=== PATIENT | female | born 1970 | race Caucasian/White ===

== ENCOUNTER 2017-04-03 23:16 | Emergency (ER) | payer OTHER ==
--- NOTE | ~2017-04-03 | EKG ---
PATIENT: CARMELA SALCEDO UNIT #: [id number] Ventricular Rate: 79 BPM Atrial Rate: 79 BPM P-R Interval: 130 ms QRS Duration: 72 ms Q-T Interval: 344 ms QTC Calculation(Bezet): 394 ms P [place]: 64 degrees Calculated R [place]: 69 degrees Calculated T [place]: 50 degrees Diagnosis Line: Normal sinus rhythm Diagnosis Line: Normal ECG Diagnosis Line: No previous ECGs available Diagnosis Line: Confirmed by KAT LAWRENCE MD ([id number]) on Diagnosis Line: 04/04/2017 3:20:33 PM INTERPRETING MD: MELINDA HAINES
[~2017-04-03 23:16] MED LIST: ADVAIR 1001 DISK W/D; ALBUTEROL17 GM; BENTYL20 MG; BENTYL20 MG PO; LORTAB 10/500 T1 TAB PO; METRONIDAZOLE PO; PHENERGAN25 MG PO; SINGULAIR
== END 2017-04-03 23:59 | disposition left against medical advice (07) ==
LOC: CED 23:16
DX: Z53.21 Procedure and treatment not carried out due to patient leaving prior to being seen by health care provider (principal)
CPT/HCPCS: 93005

== ENCOUNTER 2017-04-04 16:04 | Emergency (ER) | payer OTHER ==
--- NOTE | ~2017-04-04 | EKG ---
PATIENT: CARMELA SALCEDO UNIT #: [id number] Ventricular Rate: 62 BPM Atrial Rate: 62 BPM P-R Interval: 124 ms QRS Duration: 74 ms Q-T Interval: 408 ms QTC Calculation(Bezet): 414 ms P [place]: 50 degrees Calculated R [place]: 73 degrees Calculated T [place]: 60 degrees Diagnosis Line: Normal sinus rhythm Diagnosis Line: Normal ECG Diagnosis Line: When compared with ECG of 03-APR-2017 23:22, Diagnosis Line: No significant change was found Diagnosis Line: Confirmed by ABEBE SAXENA MD ([id number]) on Diagnosis Line: 04/08/2017 9:43:02 AM INTERPRETING [place]
--- NOTE | ~2017-04-04 | CR63 ---
[facility] A Service of [facility] RADIOLOGY TEXT RESULTS PATIENT: CARMELA SALCEDO LOCATION: [facility] : 70 UNIT #: [id number] AGE: [address]: Lorraine Chaney MD SEX: F ORDER DR: [id number] [facility] [address] [place], [place] [address] [id number] E MR#: [id number] Acc #: [id number] NAME: CARMELA SALCEDO : 1970 SEX: F STUDY DATE/TIME: 04/04/2017 19:23 UNIT: [facility] ROOM: STUDY DESCRIPTION: CR Chest 2 View Attending Physician: Lorraine Chaney M.D. Ordering Physician: Lorraine Chaney M.D. Primary Care Physician: Primary Care Physician No MEDICAL IMAGING REPORT This report is preliminary unless electronic signature is present EXAM Chest x-ray 2 views HISTORY Cough, congestion and chest pain today. Mid chest pain to left side with headache and shortness of breath. No history of cancer. The patient is a smoker. COMMENT 2 views of the chest reviewed. 3 films submitted. Comparison study is from 04/04/2017. There are mild thoracic degenerative changes. There is no pleural effusion. The heart size is normal. There is no acute-appearing parenchymal infiltrate or acute congestive failure. No pneumothorax. IMPRESSION No active disease. Dictated by... Elba Rojo M.D. THIS IS AN ELECTRONICALLY VERIFIED REPORT Elba Rojo M.D. at 04/05/2017 2:29 PM SUSIE/judy TD: 04/05/2017 03:22 JOB #: [id number] MEDICAL IMAGING REPORT Page 1 of 1 COPY
--- NOTE | ~2017-04-04 | CR72 ---
[facility] A Service of [facility] RADIOLOGY TEXT RESULTS PATIENT: CARMELA SALCEDO LOCATION: [facility] : 70 UNIT #: [id number] AGE: [address]: Lorraine Chaney MD SEX: F ORDER DR: [id number] [facility] [address] [place], [place] [address] [id number] E MR#: [id number] Acc #: [id number] NAME: CARMELA SALCEDO : 1970 SEX: F STUDY DATE/TIME: 04/04/2017 17:28 UNIT: [facility] ROOM: STUDY DESCRIPTION: CR Chest Single View Portable Attending Physician: Lorraine Chaney M.D. Ordering Physician: Lorraine Chaney M.D. Primary Care Physician: No Primary Care Physician MEDICAL IMAGING REPORT This report is preliminary unless electronic signature is present EXAM Chest, single view. INDICATIONS Palpitation and shortness of breath starting today. FINDINGS Comparison made to a prior exam from February 13, 2010. FINDINGS There is some questionable infiltrate seen within the left infrahilar region. Potentially this may just reflect some summation of shadows. PA and lateral chest radiograph will allow for clarification. No pneumothorax or pleural effusion is seen. Patient's right lung appears clear. Dictated by... Ashlyn Shelton M.D. THIS IS AN ELECTRONICALLY VERIFIED REPORT Ashlyn Shelton M.D. at 04/05/2017 10:57 AM AFF/ea TD: 04/05/2017 00:42 JOB #: [id number] MEDICAL IMAGING REPORT Page 1 of 1 COPY
--- NOTE | ~2017-04-04 | CT71 ---
[facility] A Service [facility] RADIOLOGY TEXT RESULTS PATIENT: CARMELA SALCEDO LOCATION: [facility] : 70 UNIT #: [id number] AGE: [address]: Lorraine Chaney MD SEX: F ORDER DR: [id number] [id number] [place], [place] [address] [id number] E MR#: [id number] Acc #: [id number] NAME: CARMELA SALCEDO : 1970 SEX: F STUDY DATE/TIME: 04/04/2017 20:16 UNIT: [facility] ROOM: STUDY DESCRIPTION: CT Head Wo Contrast Attending Physician: Lorraine Chaney M.D. Ordering Physician: Lorraine Chaney M.D. Primary Care Physician: Primary Care Physician No MEDICAL IMAGING REPORT This report is preliminary unless electronic signature is present EXAM CT of the head without contrast INDICATIONS Headache intermittently since April 01, 2017. TECHNIQUE Axial CT images were obtained from the vertex of the skull through skull base. No intravenous contrast material was administered. This CT exam was performed with one or more of the following radiation dose reduction techniques: Automatic exposure control, adjustment of mA and/or kV according to patient size, and iterative reconstruction. FINDINGS Axial noncontrast images were obtained from the skull base to the vertex. Ventricular size and configuration are normal. There is no evidence of acute infarct or hemorrhage. There are no extraaxial fluid collections. No mass lesion or mass effect is seen. There are no skull fractures. IMPRESSION Normal noncontrast head CT. Negative. Dictated by... Ashlyn Shelton M.D. THIS IS AN ELECTRONICALLY VERIFIED REPORT Ashlyn Shelton M.D. at 04/05/2017 10:59 AM AFF/psc TD: 04/05/2017 04:14 JOB #: [id number] [facility] A Service [facility] RADIOLOGY TEXT RESULTS PATIENT: CARMELA SALCEDO LOCATION: [facility] : 70 UNIT #: [id number] AGE: [address]: Lorraine Chaney MD SEX: F ORDER DR: MEDICAL IMAGING REPORT Page 1 of 1 COPY
[2017-04-04 17:35] LABS: POC - CKMB 1.5 ng/mL (0.0-7.9); POC - TROPONIN <0.05 ng/mL (<=0.05)
[2017-04-04 17:37] LABS: BASOPHIL% 0.5 % (0-2.5); EOSINOPHIL# 0.1 X10e3 (0-0.7); EOSINOPHIL% 1.6 % (0.0-7.0); HEMATOCRIT 41.9 % (35.0-45.0); HEMOGLOBIN 13.7 gm/dL (12.0-16.0); LYMPHOCYTE# 2.8 X10e3 (1.0-3.5); LYMPHOCYTE% 31.7 % (17.0-45.0); MEAN CELL VOLUME 95.4 FL (83-96); MEAN CORPUSCULAR HEMOGLOBIN 31.3 PG (28-34); MEAN CORPUSCULAR HGB CONC 32.8 g/dL (30-36); MEAN PLATELET VOLUME 8.8 FL (6.5-11.5); MONOCYTE# 1.1 X10e3 (0-1.0); MONOCYTE% 11.8 % (3.0-12.0); NEUTROPHIL# 4.9 X10e3 (1.5-7.1); NEUTROPHIL% 54.4 % (40-75); PLATELET COUNT 264 X10e3 (140-420); RED CELL DISTRIBUTION WIDTH 13.8 % (11.0-15.5)
[2017-04-04 17:38] LABS: DIFF IND NO
[2017-04-04 17:51] LABS: PROTHROMBIN TIME (PATIENT) 10.7 SECONDS (9.6-11.5)
[2017-04-04 17:54] LABS: ALBUMIN SERUM 4.2 g/dL (3.5-5.0); BILIRUBIN, DIRECT 0.2 mg/dL (0.0-0.2); BILIRUBIN,INDIRECT 1.2 mg/dL (0.0-0.9); BILIRUBIN,TOTAL 1.4 mg/dL (0.2-2.0); CREATININE SERUM 0.6 mg/dL (0.6-1.4); GLOM FILT RATE Estimated 108.5 mL/min (>60); POTASSIUM 3.9 mmol/L (3.5-5.1); PROTEIN TOTAL SERUM 6.9 g/dL (6.0-8.3)
== END 2017-04-04 21:16 | disposition home or self-care (01) ==
LOC: CED 16:04
PROVIDERS: Emergency Medicine
DX: R06.00 Dyspnea, unspecified (principal)
CPT/HCPCS: 36415; 70450; 71010; 71020; 80048; 80076; 82553; 83880; 84484; 84703; 85025; 85610; 93005; 99284